=== PATIENT | male | born 2000 | race Hispanic/Latino ===

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

== ENCOUNTER 2022-03-30 10:43 | Emergency (ER) | payer OTHER ==
[~2022-03-30] VITALS: Ht 170.2 cm; Wt 80.0 kg
[~2022-03-30 10:43] MED LIST: TRAMADOL HYDROC50 MG PO; ZOFRAN4 MG/TAB PO
[2022-03-30] MEDS ORDERED: NAPROXEN500 MG PO (14:21)
[2022-03-30] MEDS ORDERED: PERCOCET 10/31 COMBO PO (14:21)
[2022-03-30] MEDS ORDERED: KEFLEX500 MG PO (14:21)
[2022-03-30 15:20] VITALS: BP 1121/74
== END 2022-03-30 15:15 | disposition home or self-care (01) | DRG 563 ==
LOC: ED 10:43
PROC: 0HQFXZZ Repair Right Hand Skin, External Approach (ICD-10-PCS; principal; 2022-03-30)
DX: S62.634A Displaced fracture of distal phalanx of right ring finger, initial encounter for closed fracture (principal); S61.314A Laceration without foreign body of right ring finger with damage to nail, initial encounter; S61.316A Laceration without foreign body of right little finger with damage to nail, initial encounter; W31.89XA Contact with other specified machinery, initial encounter; Y93.89 Activity, other specified; Y92.89 Other specified places as the place of occurrence of the external cause; Y99.0 Civilian activity done for income or pay

== ENCOUNTER 2022-12-24 20:44 | Emergency (ER) | payer OTHER ==
[2022-12-24] VITALS (11 sets, daily range): BP systolic 114–144; BP diastolic 66–86
[~2022-12-24] VITALS: Ht 170.2 cm; Wt 81.6 kg
[~2022-12-24 20:44] MED LIST changes: +KEFLEX500 MG PO; +NAPROXEN500 MG PO; +PERCOCET 10/31 COMBO PO
== END 2022-12-24 23:13 | disposition home or self-care (01) | DRG 605 ==
LOC: ED 20:44
PROC: 0HQFXZZ Repair Right Hand Skin, External Approach (ICD-10-PCS; principal; 2022-12-24)
DX: S61.011A Laceration without foreign body of right thumb without damage to nail, initial encounter (principal); W45.8XXA Other foreign body or object entering through skin, initial encounter

== ENCOUNTER 2022-12-28 13:56 | Emergency (ER) | payer OTHER, BC ==
[~2022-12-28] VITALS: Ht 170.2 cm; Wt 81.6 kg
[2022-12-28 14:01] VITALS: BP 140/97
[2022-12-28 14:30] VITALS: BP 113/51
[2022-12-28 14:34] VITALS: BP 113/51
== END 2022-12-28 14:44 | disposition home or self-care (01) | DRG 921 ==
LOC: ED 13:56
PROC: 0HQFXZZ Repair Right Hand Skin, External Approach (ICD-10-PCS; principal; 2022-12-28)
DX: T81.33XA Disruption of traumatic injury wound repair, initial encounter (principal); Y83.9 Surgical procedure, unspecified as the cause of abnormal reaction of the patient, or of later complication, without mention of misadventure at the time of the procedure